=== PATIENT | male | born 1945 | race Caucasian/White ===

== ENCOUNTER 2018-03-26 04:21 | Emergency (ER) | payer MEDICARE ==
[2018-03-26] MEDS ORDERED: rOPINIRole 1 MG Tab PO ONE ×2 (05:36→06:09)
--- NOTE | 2018-03-26 06:02 | EDM.PDOC ---
ED HPI GENERAL MEDICAL PROBLEM - General Chief Complaint: General Stated Complaint: RESTLESS LEG Time Seen by Provider: 03/26/18 05:35 Source of Information: Reports: Patient History Limitations: Reports: No Limitations - History of Present Illness INITIAL COMMENTS - FREE TEXT/NARRATIVE: This man has restless leg syndrome and hasn't slept for a few days. He was here last pm and rec'd an rx for ropinirol but couldn't get it filled. Can't sleep. Wants a knock out drug. - Related Data Allergies Allergy/AdvReac Type Severity Reaction Status Date / Time No Known Allergies Allergy Verified 03/26/18 05:05 Home Meds: Home Meds Adalimumab [Humira Pen] 1 dose SQ ASDIRECTED 03/26/18 [History] Aspirin 1 tab PO DAILY 03/26/18 [History] Calcium Carbonate [Calcium] 1 tab PO DAILY 03/26/18 [History] Folic Acid 1 tab PO DAILY 03/26/18 [History] Gabapentin [Neurontin] 1 tab PO TID 03/26/18 [History] Levothyroxine 1 tab PO DAILY 03/26/18 [History] Meloxicam 1 tab PO DAILY 03/26/18 [History] Methotrexate Sodium [Methotrexate] 10 tab PO ASDIRECTED 03/26/18 [History] Omeprazole 1 tab PO DAILY 03/26/18 [History] Simvastatin [Zocor] 1 tab PO DAILY 03/26/18 [History] hydroCHLOROthiazide [Hydrochlorothiazide] 1 tab PO DAILY 03/26/18 [History] predniSONE [Prednisone] 1 tab PO DAILY 03/26/18 [History] rOPINIRole HCl [Ropinirole ER] 1 tab PO DAILY 03/26/18 [History] Past Medical History HEENT History: Reports: Other (See Below) Other HEENT History: nose broke years ago Cardiovascular History: Reports: High Cholesterol, Hypertension Musculoskeletal History: Reports: Arthritis Endocrine/Metabolic History: Reports: Hypothyroidism - Infectious Disease History Infectious Disease History: Reports: Chicken Pox, Measles, Mumps - Past Surgical History GI Surgical History: Reports: Appendectomy, Colonoscopy, Hernia, Inguinal Musculoskeletal Surgical History: Reports: Other (See Below) Other Musculoskeletal Surgeries/Procedures:: L4 bone spur fixed Social & Family History - Family History Family Medical History: Noncontributory - Tobacco Use Smoking Status *Q: Current Every Day Smoker Years of Tobacco use: 50 Packs/Tins Daily: 0.5 - Caffeine Use Caffeine Use: Reports: Coffee - Recreational Drug Use Recreational Drug Use: No ED ROS GENERAL - Review of Systems Review Of Systems: ROS reveals no pertinent complaints other than HPI. ED EXAM, GENERAL - Physical Exam Exam: See Below Exam Limited By: No Limitations General Appearance: Alert, WD/WN, No Apparent Distress Neurological: Alert, Oriented, Normal Cognition Skin Exam: Warm, Dry Course - Vital Signs Last Recorded V/S: Last Vital Signs Temp 35.0 C L 03/26/18 05:14 Pulse 52 L 03/26/18 05:14 Resp 16 03/26/18 05:14 BP 153/78 H 03/26/18 05:14 Pulse Ox 100 03/26/18 05:14 - Orders/Labs/Meds Meds: Medications Discontinued Medications Generic Name Dose Route Start Last Admin Trade Name La PRN Reason Stop Dose Admin Ropinirole HCl 1 mg 03/26/18 05:36 03/26/18 05:45 Requip PO 03/26/18 05:37 1 mg ONETIME ONE Administration - Re-Assessments/Exams Free Text/Narrative Re-Assessment/Exam: 03/26/18 05:59 He received 1 dose Ropinirole. He will get rx filled this am Departure - Departure Time of Disposition: 06:00 Disposition: Home, Self-Care 01 Condition: Fair Clinical Impression: Restless leg syndrome, uncontrolled - Discharge Information Referrals: PCP,None [Primary Care Provider] - Additional Instructions: Get your new ropinirole prescription filled this am.
== END 2018-03-26 06:31 | disposition home or self-care (01) ==
LOC: JP.ED 04:21
DX: G25.81 Restless legs syndrome (principal); F17.210 Nicotine dependence, cigarettes, uncomplicated; E78.00 Pure hypercholesterolemia, unspecified; Z79.899 Other long term (current) drug therapy; Z79.82 Long term (current) use of aspirin
CPT/HCPCS: 99283; A9270

== ENCOUNTER 2018-04-16 05:41 | Emergency (ER) | payer OTHER ==
[2018-04-16] MEDS: HYDROmorphone 1 MG/ML Syringe IM ONE (06:46)
--- NOTE | 2018-04-16 06:51 | EDM.PDOC ---
ED HPI GENERAL MEDICAL PROBLEM - General Chief Complaint: Back Pain or Injury Stated Complaint: L SIDE SCIATIC PAIN Time Seen by Provider: 04/16/18 06:40 Source of Information: Reports: Patient History Limitations: Reports: No Limitations - History of Present Illness INITIAL COMMENTS - FREE TEXT/NARRATIVE: This man complains of left sciatica symptoms for the past week. [facility] No results for several days. Pain from lt buttocks to left knee. No weakness. No bladder/bowel problems. Pain not controlled and causing anxiety issues and bad thoughts (about how to stop the pain). Not suicidal. 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: Reports: Other (see below) Other 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: hydrocodone 0130 Left Buttock/Upper Leg Pain Score (Numeric/FACES): 10 - Related Data Allergies Allergy/AdvReac Type Severity Reaction Status Date / Time No Known Allergies Allergy Verified 04/16/18 06:11 Home Meds: Home Meds Adalimumab [Humira Pen] 1 dose SQ ASDIRECTED 03/26/18 [History] Aspirin 1 tab PO DAILY 03/26/18 [History] Calcium Carbonate [Calcium] 1 tab PO DAILY 03/26/18 [History] Folic Acid 1 tab PO DAILY 03/26/18 [History] Gabapentin [Neurontin] 1 tab PO TID 03/26/18 [History] Levothyroxine 1 tab PO DAILY 03/26/18 [History] Meloxicam 1 tab PO DAILY 03/26/18 [History] Methotrexate Sodium [Methotrexate] 10 tab PO ASDIRECTED 03/26/18 [History] Omeprazole 1 tab PO DAILY 03/26/18 [History] Simvastatin [Zocor] 1 tab PO DAILY 03/26/18 [History] hydroCHLOROthiazide [Hydrochlorothiazide] 1 tab PO DAILY 03/26/18 [History] predniSONE [Prednisone] 1 tab PO DAILY 03/26/18 [History] rOPINIRole HCl [Ropinirole ER] 1 tab PO DAILY 03/26/18 [History] Hydrocodone/Acetaminophen [Hydrocodon-Acetaminophen 5-325] 1 each PO Q4HR PRN [History] Past Medical History HEENT History: Reports: Other (See Below) Other HEENT History: nose broke years ago Cardiovascular History: Reports: High Cholesterol, Hypertension Musculoskeletal History: Reports: Arthritis Endocrine/Metabolic History: Reports: Hypothyroidism - Infectious Disease History Infectious Disease History: Reports: Chicken Pox, Measles, Mumps - Past Surgical History GI Surgical History: Reports: Appendectomy, Colonoscopy, Hernia, Inguinal Neurological Surgical History: Reports: Other (See Below) Other Neurological Surgeries/Procedures: Bone spur L4 Musculoskeletal Surgical History: Reports: Other (See Below) Other Musculoskeletal Surgeries/Procedures:: L4 bone spur fixed Social & Family History - Family History Family Medical History: Noncontributory - Tobacco Use Smoking Status *Q: Current Every Day Smoker Years of Tobacco use: 40 Packs/Tins Daily: 0.5 - Caffeine Use Caffeine Use: Reports: Coffee - Recreational Drug Use Recreational Drug Use: No ED ROS GENERAL - Review of Systems Review Of Systems: ROS reveals no pertinent complaints other than HPI. ED EXAM,LOWER BACK PAIN/INJURY - Physical Exam Exam: See Below Exam Limited By: No Limitations General Appearance: Alert, WD/WN, Mild Distress Eye Exam: Bilateral Eye: Normal Inspection Back Exam: Other (No definite spasm to left SI or buttocks area) Neurological: Alert, Normal Mood/Affect, Normal Dorsiflexion, Normal Plantar Flexion, No Motor/Sensory Deficits, Oriented x 3 DTR - Lower Extremities: 1+: Knee (L), Ankle (L), 2+: Knee (R), Ankle (R) Skin Exam: Warm, Dry Course - Vital Signs Last Recorded V/S: Last Vital Signs Temp 36.1 C 04/16/18 06:05 Pulse 47 L 04/16/18 06:05 Resp 16 04/16/18 06:05 BP 170/78 H 04/16/18 06:05 Pulse Ox 97 04/16/18 06:05 - Orders/Labs/Meds Meds: Medications Discontinued Medications Generic Name Dose Route Start Last Admin Trade Name La PRN Reason Stop Dose Admin Hydromorphone HCl 1 mg 04/16/18 06:41 Dilaudid IM 04/16/18 06:42 ONETIME ONE - Re-Assessments/Exams Free Text/Narrative Re-Assessment/Exam: 04/16/18 06:51 Gave injection Dilaudid 1 mg IM Departure - Departure Time of Disposition: 06:51 Disposition: Home, Self-Care 01 Condition: Fair Clinical Impression: Sciatica - Discharge Information Referrals: Cecilia Sloan MD [Primary Care Provider] - Additional Instructions: For pain switch to Percocet 5/325 (#20) 1 or 2 every 4 hours. For anxiety use Lorazepam 0.5 mg (#15) 1 or 2 tabs every 8 hours. Both meds cause sedation that can cause falls and impaired driving or operating machinery. Taking both of them will make it worse. both can cause dependence when taken continuously for an extended period. Use the minimum effective dose.
== END 2018-04-16 07:12 | disposition home or self-care (01) ==
LOC: JP.ED 05:41
DX: M54.32 Sciatica, left side (principal); I10 Essential (primary) hypertension; F17.210 Nicotine dependence, cigarettes, uncomplicated; Z79.82 Long term (current) use of aspirin; Z79.899 Other long term (current) drug therapy
CPT/HCPCS: 96372; 99283; J1170

== ENCOUNTER 2021-06-19 21:36 | Emergency (ER) | payer SELFPAY ==
--- NOTE | 2021-06-19 23:14 | EDM.PDOC ---
ED HPI GENERAL MEDICAL PROBLEM - General Chief Complaint: General Stated Complaint: RESTLESS LEGS, OUT OF MEDICATION Time Seen by Provider: 06/19/21 23:00 Source of Information: Reports: Patient, Old Records History Limitations: Reports: No Limitations - History of Present Illness INITIAL COMMENTS - FREE TEXT/NARRATIVE: 76 [facility] presents requesting a refill of his meds for his restless legs. He can't sleep without it. He is a [facility] patient and is awaiting the arrival in the mail of his next batch of meds. 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: Other (see below) (none) bilateral legs Pain Score (Numeric/FACES): 8 - Related Data Allergies Allergy/AdvReac Type Severity Reaction Status Date / Time No Known Allergies Allergy Verified 06/19/21 23:02 Home Meds: Home Meds Adalimumab [Humira Pen] 1 dose SQ ASDIRECTED 03/26/18 [History] Aspirin 1 tab PO DAILY 03/26/18 [History] Calcium Carbonate [Calcium] 1 tab PO DAILY 03/26/18 [History] Folic Acid 1 tab PO DAILY 03/26/18 [History] Gabapentin [Neurontin] 1 tab PO TID 03/26/18 [History] Levothyroxine 1 tab PO DAILY 03/26/18 [History] Meloxicam 1 tab PO DAILY 03/26/18 [History] Omeprazole 1 tab PO DAILY 03/26/18 [History] Simvastatin [Zocor] 1 tab PO DAILY 03/26/18 [History] hydroCHLOROthiazide [Hydrochlorothiazide] 1 tab PO DAILY 03/26/18 [History] predniSONE [Prednisone] 1 tab PO DAILY 03/26/18 [History] rOPINIRole HCl [Ropinirole ER] 1 tab PO DAILY 03/26/18 [History] Potassium Chloride [Klor-Con M20] 20 meq PO DAILY 06/19/21 [History] rOPINIRole HCl [Ropinirole ER] 4 - 6 mg PO BEDTIME PRN #24 tab.er.24h 06/19/21 [Rx] Past Medical History HEENT History: Reports: Other (See Below) Other HEENT History: nose broke years ago Cardiovascular History: Reports: High Cholesterol, Hypertension Gastrointestinal History: Reports: GERD Musculoskeletal History: Reports: Arthritis, Back Pain, Chronic Endocrine/Metabolic History: Reports: Hypothyroidism - Infectious Disease History Infectious Disease History: Reports: Chicken Pox, Measles, Mumps - Past Surgical History GI Surgical History: Reports: Appendectomy, Colonoscopy, Hernia, Inguinal Neurological Surgical History: Reports: Lumbar Spine, Other (See Below) Other Neurological Surgeries/Procedures: Bone spur L4 Musculoskeletal Surgical History: Reports: Other (See Below) Other Musculoskeletal Surgeries/Procedures:: L4 bone spur fixed Social & Family History - Family History Family Medical History: No Pertinent Family History - Caffeine Use Caffeine Use: Reports: Coffee, Soda ED ROS GENERAL - Review of Systems Review Of Systems: See Below Constitutional: Reports: No Symptoms Skin: Reports: No Symptoms Neurological: Reports: Other (restless legs bilat) Psychiatric: Reports: No Symptoms ED EXAM, GENERAL - Physical Exam Exam: See Below Exam Limited By: No Limitations General Appearance: Alert, WD/WN, No Apparent Distress Eye Exam: Bilateral Eye: Normal Inspection Ears: Normal External Exam, Hearing Grossly Normal Ear Exam: Bilateral Ear: Auricle Normal Nose: Normal Inspection Throat/Mouth: Normal Voice, No Airway Compromise Head: Atraumatic, Normocephalic Neck: Normal Inspection Respiratory/Chest: No Respiratory Distress Extremities: Normal Inspection Neurological: Alert, Oriented, CN II-XII Intact, Normal Cognition, No Motor/Sensory Deficits Psychiatric: Normal Affect, Normal Mood Skin Exam: Warm, Dry, Intact, Normal Color Course - Vital Signs Last Recorded V/S: Last Vital Signs Temp 36.3 C 06/19/21 23:09 Pulse 59 L 06/19/21 23:09 Resp 16 06/19/21 23:09 BP 155/87 H 06/19/21 23:09 Pulse Ox 97 06/19/21 23:09 - Orders/Labs/Meds Orders: Active Orders 24 hr Category Date Time Status rOPINIRole [Requip] Med 06/20/21 21:00 Stop Req 6 mg PO BEDTIME rOPINIRole [Requip] Med 06/19/21 23:16 Stat 6 mg PO NOW STA Medication Orders Ropinirole HCl (Ropinirole 1 Mg Tab) 6 mg PO BEDTIME SANTO Meds: Medications Generic Name Dose Route Start Last Admin Trade Name La PRN Reason Stop Dose Admin Ropinirole HCl 6 mg 06/20/21 21:00 Ropinirole 1 Mg Tab PO BEDTIME SANTO Departure - Departure Time of Disposition: 23:18 Disposition: Home, Self-Care 01 Condition: Good Clinical Impression: Restless leg syndrome - Discharge Information *PRESCRIPTION DRUG MONITORING PROGRAM REVIEWED*: Not Applicable *COPY OF PRESCRIPTION DRUG MONITORING REPORT IN PATIENT [place]: Not Applicable Prescriptions: rOPINIRole HCl [Ropinirole ER] 4 - 6 mg PO BEDTIME PRN #24 tab.er.24h PRN Reason: Sleep Referrals: PCP,None [Primary Care Provider] - Forms: ED Department Discharge Additional Instructions: Use the ropinirole for your restless legs as before. I sent the Rx for you to [facility] Sepsis Event Note (ED) - Evaluation Sepsis Screening Result: No Definite Risk - Focused Exam Vital Signs: Vital Signs Temp Pulse Resp BP Pulse Ox 06/19/21 23:09 36.3 C 59 L 16 155/87 H 97 06/19/21 22:57 36.3 C 59 L 16 155/87 H 97 - My Orders Last 24 Hours: My Active Orders 06/19/21 23:16 rOPINIRole [Requip] 6 mg PO NOW STA 06/20/21 21:00 rOPINIRole [Requip] 6 mg PO BEDTIME - Assessment/Plan Last 24 Hours: My Active Orders 06/19/21 23:16 rOPINIRole [Requip] 6 mg PO NOW STA 06/20/21 21:00 rOPINIRole [Requip] 6 mg PO BEDTIME
[2021-06-19] MEDS ORDERED: rOPINIRole 1 MG Tab PO STA (23:16)
[2021-06-20] MEDS ORDERED: rOPINIRole 1 MG Tab PO SCH (21:00)
== END 2021-06-19 23:32 | disposition home or self-care (01) ==
LOC: JP.ED 21:36
DX: G25.81 Restless legs syndrome (principal); E78.00 Pure hypercholesterolemia, unspecified; I10 Essential (primary) hypertension; K21.9 Gastro-esophageal reflux disease without esophagitis; E03.9 Hypothyroidism, unspecified; Z79.82 Long term (current) use of aspirin; Z79.899 Other long term (current) drug therapy
CPT/HCPCS: 99283; A9270